=== PATIENT | male | born 1965 | race Caucasian/White ===

== ENCOUNTER → 2024-04-24 15:31 | Outpatient (REF) | payer OTHER, SELFPAY | LOC: CLAB 15:31 | PROVIDERS: ATTENDING PHYSICIAN Student in an Organized Health Care Education/Training Program | DX: M67.472 Ganglion, left ankle and foot (principal) | CPT/HCPCS: 88304 ==

== ENCOUNTER 2024-06-23 06:43 | Emergency (ER) | payer OTHER, SELFPAY ==
[2024-06-23 06:51] VITALS: BP 120/78
--- NOTE | 2024-06-23 08:22 | ED.GENMED ---
History of Present Illness
General
Chief Complaint: Musculo-Skeletal Complaint
Time Seen by Provider: 06/23/24 08:22
History of Present Illness
History of Present Illness:
TIME OF INITIAL ENCOUNTER: 8:25 AM
HPI: 2 nights ago, the patient tripped down the steps. He admits to a little bit of alcohol use but denies any head injury. He has no pain at rest but also much more pain when he attempts to walk on it.
EXAM:
GENERAL: Well appearing in no distress
CERVICAL SPINE: Excellent AROM
HEAD: No evidence of craniofacial trauma
CHEST: No chest wall tenderness
LUNGS: No respiratory distress
ABDOMEN: No abdominal tenderness, no peritoneal signs
EXTREMITIES: Normal active range of motion, no tenderness
NEURO: Some subtle ecchymosis noted to the distal aspect of the right foot, mild soft tissue swelling, only mild bony tenderness to the lateral aspect of the right foot, no deformity, excellent active range of motion
NUMBER AND COMPLEXITY OF PROBLEMS ADDRESSED AT THE ENCOUNTER
� Chronic conditions affecting care: No significant past medical history
� Acute Exacerbation and/or Progression of Chronic Illness: This is an acute problem
� Differential Diagnosis includes: Foot fracture, foot sprain, ankle fracture, ankle, Achilles injury
AMOUNT AND/OR COMPLEXITY OF DATA TO BE REVIEWED AND ANALYZED
� I performed an independent evaluation of and my interpretation is:
EKG:
CT:
X-rays: I personally reviewed x-rays. The patient has displaced comminuted fractures at the midshaft of the right fifth metatarsal, there is also a small nondisplaced fracture to the distal fourth metatarsal
Laboratory Studies:
Other:
� Review of other/old records: I reviewed records, the patient had colonoscopy in 2022
� Clinical information was obtained by an independent historian: None needed
� Prescriptions/Medications Considered but not given: Considered analgesia however the patient has no pain at rest
� Further testing considered but not performed: No indication for MRI at this time
RISK OF COMPLICATIONS AND/OR MORBIDITY OR MORTALITY OF PATIENT MANAGEMENT
� Social determinants of health affecting care: Lives at home
� Discussion with other providers: Discussed findings with Dr. Quesada nonweightbearing, crutches, Cam boot
� Escalation of care including admission/observation vs risk of discharge considered:
ANY OTHER UPDATES:
Past History
Past History
ED Past Medical History: Other (Orthopedic procedure, also lipoma removal)
ED Past Surgical History: Orthopedic
Social History
Tobacco: Non-smoker
Alcohol: None
Drug: None
Personal:
Living: with family
Employment: Employed
Family History
Family History: Other (Noncontributory)
Phy Exam
Physical Exam
Physical Exam:
See HPI
Course
Orders/Labs/Results
Orders:
Orders
06/23/24 06:53
Foot, Right 3 View [CR Foot - Right Min 3 Views] Urgent
Comment:
Reason For Exam: MISSED STEPS ROLLED FOOT
06/23/24 08:39
Crutches-Treatment ONCE
Ortho Boot Right- Treatment ONCE
Short or tall?: Short
Vital Signs
Initial and Last Documented VS:
Initial Vital Signs
Temp Pulse Resp BP Pulse Ox
36.6 C 90 20 120/78 98
06/23/24 06:51 06/23/24 06:51 06/23/24 06:51 06/23/24 06:51 06/23/24 06:51
Last Documented Vital Signs
Temp Pulse Resp BP Pulse Ox
36.6 C 90 20 120/78 98
06/23/24 06:51 06/23/24 06:51 06/23/24 06:51 06/23/24 06:51 06/23/24 06:51
*Critical Care Note
Total Time (30-74mins, 75-104mins- exclusive of procedures): Not Applicable
ED Attending Note
-
Portions of this chart may have been created with voice recognition software.� Occasional wrong word or��sound alike� substitutions may have occurred due to the inherent limitations of voice recognition software.
Discharge Plan
Departure
Patient Disposition: Home (Routine Discharge)
Date of Disposition: 06/23/24
Time of Disposition: 08:39
Patient with high blood pressure during this ER visit?: Yes
Discharge Problem:
Metatarsal fracture
Instructions: Foot Fracture ED
Prescriptions:
No Action
acetaminophen 325 MG tablet
650 mg PO Q4HPRN PRN (Reason: mild pain) Qty: 1 0RF
ibuprofen 200 MG tablet
400 - 600 mg PO Q6HPRN PRN (Reason: moderate pain) Qty: 1 0RF
Referrals:
Rikki Brizuela, DO [Family Provider] -
Activity Restrictions/Additional Instructions:
I notified Dr. Rodriguez, on-call for [facility] orthopedics. He recommends using the cam boot and crutches and to stay nonweightbearing for now. He wants you to follow-up with Dr. Peñaloza (flag football coach).
Interventions
Interventions:
*Risk Screen - Suicide Last Done: 06/23/24 06:51
*Neglect/Abuse Screening Last Done: 06/23/24 06:51
Discharge Date and Time
Print Language: EQUATORIAL GUINEAN
[2024-06-23 08:55] VITALS: BMI 27.6
[2024-06-23 08:57] VITALS: BP 109/61
== END 2024-06-23 09:01 | disposition home or self-care (01) ==
LOC: EMR 06:43
PROVIDERS: EMERGENCY PHYSICIAN Emergency Medicine; FAMILY PHYSICIAN Internal Medicine
DX: S92.351A Displaced fracture of fifth metatarsal bone, right foot, initial encounter for closed fracture (principal); W18.40XA Slipping, tripping and stumbling without falling, unspecified, initial encounter
CPT/HCPCS: 99283; 73630

== ENCOUNTER → 2024-08-11 06:47 | Outpatient (REF) | payer OTHER, SELFPAY | LOC: RAD 06:47 | PROVIDERS: ATTENDING PHYSICIAN Internal Medicine | DX: R10.84 Generalized abdominal pain (principal) | CPT/HCPCS: 74177; Q9967 ==